=== PATIENT | male | born 1970 | race African-American/Black ===

== ENCOUNTER 2018-11-01 15:20 | Inpatient (IN) | payer MEDICAID ==
[~2018-11-01] VITALS: Ht 172.7 cm; Wt 78.0 kg
[2018-11-01 15:20] VITALS: BP 156/79
[~2018-11-01 15:20] MED LIST: ABILIFY15 MG ORAL; BENZTROPINE ME0.5 MG PO; DIPHENHYDRAMINE25 M1 ORAL; HYDROCHLOROTHIA25 MG ORAL; VALPROIC ACID250 MG PO
[2018-11-01] MEDS ORDERED: Tetanus/Diptheria/Pertussis Vaccine 0.5ml Syr IM ONE (15:45)
[2018-11-01] MEDS ORDERED: Acetaminophen 500mg (ES) tab ORAL ONE (15:45)
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
[2018-11-01 16:50] LABS: BASOPHILS % (AUTO) 1.4 % (0.0-2.0); HEMATOCRIT 52.4 % (42.0-52.0); HEMOGLOBIN 16.4 G/DL (14.2-18.0); LYMPHOCYTES % (AUTO) 6.6 % (20.0-45.0); MEAN CORPUSCULAR VOLUME 88 FL (80-99); MONOCYTES % (AUTO) 7.4 % (1.0-10.0); NEUTROPHILS % (AUTO) 84.5 % (45.0-75.0); PLATELET COUNT 166 K/UL (150-450); RED BLOOD COUNT 5.97 M/UL (4.70-6.10); RED CELL DISTRIBUTION WIDTH 14.3 % (11.6-14.8); WHITE BLOOD COUNT 16.1 K/UL (4.8-10.8)
--- NOTE | 2018-11-01 17:00 | Diagnostic Imaging Report ---
Indication: Reason For Exam: PAIN Technique: Continuous helical CT scanning of the head was performed without intravenous contrast material. Axial and coronal 5 mm sections were generated. Radiation dose was minimized using automated exposure control Dose: Total Dose Length Product - DLP [address] Dose Index - CTDIvol(s) 70.38 mGy. Comparison: 03/29/2012 Findings: The ventricular system is normal in size and configuration. There is no shift of midline structures. No abnormal extra-axial fluid collections are noted. There is no evidence of intracerebral bleeding. No other abnormal high or low density areas are noted within the brain. Normal vincent-white differentiation. Visualized sinuses are unremarkable. The mastoids are clear. There is chronic appearing medial displacement of the bilateral medial orbital hemphill. No significant interim change Impression: Normal CT scan of the head without contrast material. The CT scanner at [facility] is accredited by the [employer] and the scans are performed using protocols designed to limit radiation exposure to as low as reasonably achievable to attain images of sufficient resolution adequate for diagnostic evaluation.
[2018-11-01 18:15] LABS: APPEARANCE,URINE SLIGHTLY CLOUDY; BILIRUBIN, URINE NEGATIVE (NEGATIVE); COLOR,URINE PALE YELLOW; GLUCOSE, URINE (UA) 4+ (NEGATIVE); KETONES,URINE 4+ (NEGATIVE); LEUKOCYTE ESTERASE ,URINE NEGATIVE (NEGATIVE); NITRITE,URINE NEGATIVE (NEGATIVE); PH,URINE 5 (4.5-8.0); PROTEIN,URINE 2+ (NEGATIVE); UROBILINOGEN,URINE NORMAL MG/DL (0.0-1.0)
[2018-11-01 18:18] LABS: ALANINE AMINOTRANSFERASE 29 U/L (12-78); ALBUMIN 3.7 G/DL (3.4-5.0); ALBUMIN/GLOBULIN RATIO 0.7 (1.0-2.7); ALKALINE PHOSPHATASE 140 U/L (46-116); ANION GAP 30 mmol/L (5-15); ASPARTATE AMINO TRANSFERASE 19 U/L (15-37); BILIRUBIN,TOTAL 0.5 MG/DL (0.2-1.0); BLOOD UREA NITROGEN 22 mg/dL (7-18); CHLORIDE 89 MMOL/L (98-107); CKMB 17.6 NG/ML (0.0-3.6); CREATINE KINASE 374 U/L (26-308); POTASSIUM 4.5 MMOL/L (3.5-5.1); SODIUM 126 MMOL/L (136-145)
[2018-11-01 18:25] LABS: CARBON DIOXIDE 7 MMOL/L (21-32)
[2018-11-01] MEDS ORDERED: Insulin Human Regular 100units/ml 3ml IV ONE (18:30)
[2018-11-01 19:14] VITALS: BP 168/111
[2018-11-01 19:15] VITALS: BP 202/134
[2018-11-01] MEDS ORDERED: cloNIDine 0.2mg Tab ORAL ONE (19:30)
[2018-11-01 20:30] VITALS: BP 146/88
[2018-11-01 21:04] LABS: ALANINE AMINOTRANSFERASE 24 U/L (12-78); ALBUMIN 1.7 G/DL (3.4-5.0); ALBUMIN/GLOBULIN RATIO 0.6 (1.0-2.7); ALKALINE PHOSPHATASE 64 U/L (46-116); ASPARTATE AMINO TRANSFERASE 21 U/L (15-37); BILIRUBIN,TOTAL 0.2 MG/DL (0.2-1.0); BLOOD UREA NITROGEN 13 mg/dL (7-18); CHLORIDE 114 MMOL/L (98-107); CREATININE 0.9 MG/DL (0.55-1.30); SODIUM 144 MMOL/L (136-145)
[2018-11-01 21:11] LABS: POTASSIUM 2.1 MMOL/L (3.5-5.1)
[2018-11-01 21:12] LABS: CALCIUM < 5.0 MG/DL (8.5-10.1); CARBON DIOXIDE < 5 MMOL/L (21-32)
[2018-11-01 22:00] VITALS: BP 98/74
[2018-11-01] MEDS ORDERED: Insulin Human Regular 100units/ml 3ml IV PRN ×8 (22:00→23:15)
[2018-11-01] MEDS ORDERED: Insulin Rate Change 1 Each MISC PRN ×3 (22:00→23:15)
[2018-11-01 22:21] LABS: ANION GAP 25 mmol/L (5-15)
[2018-11-01] MEDS ORDERED: Calcium Gluconate 10% 1 GM in NS 110 ML IVPB SCH (22:45)
[2018-11-01 23:00] VITALS: BP 126/83
[2018-11-02] VITALS (24 sets, daily range): BP systolic 96–128; BP diastolic 46–96
[2018-11-02] MEDS ORDERED: Calcium Gluconate 1gm/10ml vial ONE (00:24)
[2018-11-02] MEDS ORDERED: NS w/KCl 20mEq 1,000 ML IV ONE (00:26)
[2018-11-02] MEDS: NS w/KCl 20mEq 1,000 ML IV SCH ×3 (00:31→18:50)
[2018-11-02] MEDS ORDERED: Insulin Human Regular 100units/ml 3ml IV PRN ×4 (01:30→04:15)
[2018-11-02] MEDS ORDERED: Insulin Rate Change 1 Each MISC PRN (01:30)
--- NOTE | 2018-11-02 02:00 | History and Physical Report ---
DATE OF ADMISSION: 11/01/2018 HISTORY OF PRESENT ILLNESS: The patient is a 48-year-old male, came to the emergency room for having DKA and sugar is high. The patient also was found to have hypokalemia. The patient has had diabetes, taking insulin, but also having some nausea, vomiting, hypertension, depression MEDICATIONS: He is taking Abilify, benztropine, Benadryl, hydrochlorothiazide, valproic acid. ALLERGIES: NKA. FAMILY HISTORY: Noncontributory. SOCIAL HISTORY: [facility]. Denies any smoking and drinking. REVIEW OF SYSTEMS: The patient unable to give any history. He is tired and sleeping. PHYSICAL EXAMINATION: VITAL SIGNS: Blood pressure is 168/111, pulse 113, respiration 16, temperature 97.8. HEENT: AT/NC. EOMI. PERRLA NECK: Supple. CHEST: Bilaterally clear. CARDIOVASCULAR: Regular rhythm. Tachycardia. ABDOMEN: Soft. Positive bowel sounds. No ascites. EXTREMITIES: No CCE. NEUROLOGIC: Generalized weakness. LABORATORY AND DIAGNOSTIC DATA: White counts are 16,000, hemoglobin 16, hematocrit 52, platelets are 166. Chemistry panel, sodium 144, potassium 2.1, BUN 13, creatinine 0.9, glucose initially was 763 and currently 415, on insulin drip. Calcium 5 . Lipase 2000. ASSESSMENT: 1. Diabetic ketoacidosis. 2. Acute pancreatitis. 3. Hypokalemia. 4. Hypocalcemia. 5. Hypertension. 6. Depression. PLAN: 1. We will admit on ICU, start NPO, clear liquid diet, and ice packs. 2. Continue in diabetic ketoacidosis protocols and Accu-Chek. 3. Intravenous fluid, 150 mL/hr. 4. Potassium replacement. 5. Consider endocrine consult. Dallin Daly M.D. DR: Daniella JOB#: [id number] CC:
[2018-11-02] MEDS ORDERED: Potassium Phosphate 30 MM in NS 275 ML IV SCH ×2 (03:30→04:15)
[2018-11-02] MEDS ORDERED: NS IV SCH (03:30)
[2018-11-02] MEDS ORDERED: POTASSIUM PHOSPHATE IV SCH (03:30)
--- NOTE | 2018-11-02 06:46 | General Progress Note ---
Assessment/Plan Problem List: (1) Pancreatitis ICD Codes: K85.90 - Acute pancreatitis without necrosis or infection, unspecified SNOMED: 56115137 (2) JESUSITA (acute kidney injury) ICD Codes: N17.9 - Acute kidney failure, unspecified SNOMED: 80547053 (3) Hypocalcemia ICD Codes: E83.51 - Hypocalcemia SNOMED: 4857083 (4) Hypokalemia ICD Codes: E87.6 - Hypokalemia SNOMED: 91831194 (5) DKA (diabetic ketoacidoses) ICD Codes: E13.10 - Other specified diabetes mellitus with ketoacidosis without coma SNOMED: 14368521, 828428574 Assessment/Plan continue insulin gtt monitor electrolytes and correct accordingly continue IVF keep NPO - consider GI and critical care consultation discussed with RN Subjective ROS Limited/Unobtainable: Yes Allergies: Coded Allergies: No Known Allergies (Unverified , 11/01/18) Subjective 48-year-old male patient presents the ER brought in by ambulance complaining of anxiety and back pain. Reports history of anxiety, states he does not know the medications that he takes. Also complaining of back pain. Denies bowel bladder incontinence. Denies acute injury or trauma. Denies pain radiating down legs. Denies drinking or drug use. Denies hx of diabetes. Patient appears agitated and anxious during interview, patient is requesting food and drink. Denies thoughts of hurting himself or others. Patient is a poor historian. Denies vomiting. found to be in DKA with severe electrolytes abnormalities lipase very high confirming pancreatitis started on IVF and insulin gtt after admitted to icu electrolytes replaced am labs pending Objective Last 24 Hour Vital Signs Date Time Temp Pulse Resp B/P (MAP) Pulse Ox O2 Delivery O2 Flow Rate FiO2 11/02/18 06:00 100 20 106/96 (99) 97 11/02/18 05:00 100 16 107/68 (81) 98 11/02/18 04:00 Room Air 11/02/18 04:00 98.0 99 16 97/65 (76) 98 11/02/18 04:00 100 11/02/18 03:00 105 16 128/93 (105) 98 11/02/18 02:00 102 16 118/63 (81) 98 11/02/18 01:00 102 16 96/75 (82) 98 11/02/18 00:00 Room Air 11/02/18 00:00 109 18 107/74 (85) 98 11/02/18 00:00 109 11/01/18 23:00 114 20 126/83 (97) 100 11/01/18 22:00 Room Air 11/01/18 22:00 98.0 106 28 98/74 (82) 99 11/01/18 21:00 97.8 99 18 146/88 95 Room Air 11/01/18 20:30 97.8 99 18 146/88 95 Room Air 11/01/18 19:39 202/134 11/01/18 19:15 97.8 120 16 202/134 99 Room Air 11/01/18 19:14 97.8 113 16 168/111 99 Room Air 11/01/18 16:16 97.8 11/01/18 15:20 97.9 78 16 156/79 98 Room Air 11/01/18 15:10 97.9 118 16 156/79 98 Room Air Intake and Output 11/01/18 11/02/18 18:59 06:59 Intake Total 2336.6 ml Output Total 500 ml Balance 1836.6 ml Intake Oral 0 ml IV Total 2336.6 ml Output Urine Total 500 ml Laboratory Tests 11/01/18 16:30: White Blood Count 16.1H, Red Blood Count 5.97, Hemoglobin 16.4, Hematocrit 52.4H , Mean Corpuscular Volume 88, Mean Corpuscular Hemoglobin 27.5, Mean Corpuscular Hemoglobin Concent 31.3L, Red Cell Distribution Width 14.3, Platelet Count 166, Mean Platelet Volume 10.5H, Neutrophils (%) (Auto) 84.5H, Lymphocytes (%) (Auto) 6.6L, Monocytes (%) (Auto) 7.4, Eosinophils (%) (Auto) 0.0, Basophils (%) (Auto) 1.4 11/01/18 17:35: Sodium Level 126L, Potassium Level 4.5, Chloride Level 89L, Carbon Dioxide Level 7*L, Anion Gap 30H, Blood Urea Nitrogen 22H, Creatinine 2.0H, Estimat Glomerular Filtration Rate 43.8, Glucose Level 763*H, Calcium Level 9.0, Magnesium Level 2.4, Total Bilirubin 0.5, Aspartate Amino Transf (AST/SGOT) 19, Alanine Aminotransferase (ALT/SGPT) 29, Alkaline Phosphatase 140H, Total Creatine Kinase 374H, Creatine Kinase MB 17.6H, Creatine Kinase MB Relative Index 4.7, Troponin I 0.000, Pro-B-Type Natriuretic Peptide 107, Total Protein 9.2H, Albumin 3.7, Globulin 5.5, Albumin/Globulin Ratio 0.7L, Lipase > 2000H, Acetone Level Positive-large 11/01/18 18:00: Urine Color Pale yellow, Urine Appearance Slightly cloudy, Urine pH 5, Urine Specific [place] 1.020, Urine Protein 2+H, Urine Glucose (UA) 4+H, Urine Ketones 4+H, Urine Blood 4+H, Urine Nitrite Negative, Urine Bilirubin Negative, Urine Urobilinogen Normal, Urine Leukocyte Esterase Negative, Urine RBC 5-10H, Urine WBC 0-2, Urine Squamous Epithelial Cells Occasional, Urine Bacteria Few, Urine Opiates Screen Negative, Urine Barbiturates Screen Negative, Phencyclidine (PCP) Screen Negative, Urine Amphetamines Screen Negative, Urine Benzodiazepines Screen Negative, Urine Cocaine Screen Negative, Urine Marijuana (THC) Screen Negative 11/01/18 20:00: Sodium Level 144#, Potassium Level 2.1#*L, Chloride Level 114H, Carbon Dioxide Level < 5*L, Anion Gap 25H, Blood Urea Nitrogen 13, Creatinine 0.9#, Estimat Glomerular Filtration Rate > 60, Glucose Level 415#H, Calcium Level < 5.0#*L, Total Bilirubin 0.2, Aspartate Amino Transf (AST/SGOT) 21, Alanine Aminotransferase (ALT/SGPT) 24, Alkaline Phosphatase 64, Total Protein 4.5#L, Albumin 1.7L, Globulin 2.8, Albumin/Globulin Ratio 0.6L 11/02/18 06:15: Sodium Level [Pending], Potassium Level [Pending], Chloride Level [Pending], Carbon Dioxide Level [Pending], Blood Urea Nitrogen [Pending], Creatinine [ Pending], Estimat Glomerular Filtration Rate [Pending], Glucose Level [Pending] , Hemoglobin A1c [Pending], Lactic Acid Level [Pending], Calcium Level [Pending] , Phosphorus Level [Pending], Magnesium Level [Pending], Lactate Dehydrogenase [ Pending] Height (Feet): 5 Height (Inches): 8.00 Weight (Pounds): 163 General Appearance: lethargic EENT: pale conjunctivae Neck: normal alignment Cardiovascular: tachycardia Respiratory/Chest: decreased breath sounds Abdomen: normal bowel sounds Pelvis: normal external exam Edema: no edema noted Arm (L), no edema noted Arm (R), no edema noted Leg (L), no edema noted Leg (R), no edema noted Pedal (L), no edema noted Pedal (R), no edema noted Generalized Objective Current Medications Medications (Trade) Dose Ordered Sig/Cristy Route PRN Reason Start Time Stop Time Status Last Admin Dose Admin Dextrose (Dextrose 50%) 25 ml Q30M PRN IV HYPOGLYCEMIA 11/02/18 04:15 12/02/18 04:14 Dextrose (Dextrose 50%) 50 ml Q30M PRN IV HYPOGLYCEMIA 11/02/18 04:15 12/02/18 04:14 Insulin Human Regular (NovoLIN R) 5 units PRN PRN IV BS 200-299 11/02/18 04:15 12/02/18 04:14 Insulin Human Regular (NovoLIN R) 10 units PRN PRN IV BS=>300 11/02/18 04:15 12/02/18 04:14 Insulin Human Regular 100 units/ Sodium Chloride 101 ml @ 0 mls/hr Q24H IV 11/02/18 04:15 12/02/18 04:14 11/02/18 05:16 Miscellaneous Medication (Insulin Rate Change) 1 ea PRN PRN MISC Sliding Scale 11/02/18 04:15 12/02/18 04:14 Ondansetron HCl (Zofran) 4 mg Q6H PRN IVP Nausea & Vomiting 11/01/18 22:15 12/01/18 22:14 Potassium Phosphate 30 mm/ Sodium Chloride 285 ml @ 47.5 mls/hr ONCE IV 11/02/18 04:15 12/02/18 04:14 11/02/18 05:13 Sodium Chloride 1,000 ml @ 100 mls/hr Q10H IV 11/01/18 22:45 12/01/18 22:44 11/02/18 00:31 Item Value Date Time Bedside Blood Glucose 181 mg/dl H 11/02/18 0600 Bedside Blood Glucose 123 mg/dl H 11/02/18 0200 Bedside Blood Glucose 452 mg/dl H 11/01/18 2200 Glucose Level 763 MG/DL *H 11/01/18 1735 Derrick Chavis MD Nov 02, 2018 06:46
[2018-11-02 07:11] LABS: ANION GAP 15 mmol/L (5-15); BLOOD UREA NITROGEN 17 mg/dL (7-18); CALCIUM 8.5 MG/DL (8.5-10.1); CARBON DIOXIDE 14 MMOL/L (21-32); CHLORIDE 111 MMOL/L (98-107); CREATININE 1.3 MG/DL (0.55-1.30); POTASSIUM 4.9 MMOL/L (3.5-5.1); SODIUM 140 MMOL/L (136-145)
--- NOTE | 2018-11-02 13:34 | Diagnostic Imaging Report ---
Indication: Chest pain Comparison: None A single view chest radiograph was obtained. Findings: Cardiomediastinal appearance is within normal limits for age. The lungs are clear. Pulmonary vascularity is appropriate. The diaphragmatic contour is smooth and costophrenic angles are sharp. No pleural effusions are identified. The bones are unremarkable. Impression: No acute findings
--- NOTE | 2018-11-02 14:39 | Cardiology Report ---
APPROVED REPORT EKG Measurement Heart [id number] MT [id number] Sinus tachycardia Voltage criteria for left ventricular hypertrophy Nonspecific T wave abnormality Abnormal ECG
[2018-11-02] MEDS ORDERED: Tubing IV Secondary IV ONE (15:48)
[2018-11-02] MEDS ORDERED: Tums 500mg ORAL PRN (17:00)
--- NOTE | 2018-11-02 21:15 | Progress Note ---
DATE: 11/02/2018 SUBJECTIVE: This is an elderly male, who came . DKA is improving. Asking for food. He is on low-dose insulin drip. OBJECTIVE: VITAL SIGNS: Blood pressure 109/68, pulse 92, respirations 15, and saturations 97. CHEST: Bilaterally clear. CARDIOVASCULAR: Regular rhythm. No gallop. No murmur. ABDOMEN: Soft. EXTREMITIES: CCE. ASSESSMENT: 1. Diabetic ketoacidosis. 2. Hypokalemia has resolved. 3. Generalized weakness. PLAN: 1. We will start liquid diet. 2. Continue sliding scale. 3. Continue IV fluid. 4. Discussed with charge nurse. Dallin Daly M.D. DR: SARA JOB#: [id number] CC:
[2018-11-03] VITALS (24 sets, daily range): BP systolic 92–142; BP diastolic 48–78
[2018-11-03] MEDS: Insulin Rate Change 1 Each MISC PRN ×4 (02:17→05:06)
[2018-11-03] MEDS: NS w/KCl 20mEq 1,000 ML IV SCH ×2 (04:38→14:45)
[2018-11-03] MEDS ORDERED: Insulin Rate Change 1 Each MISC PRN (07:00)
[2018-11-03] MEDS ORDERED: Insulin Human Regular 100units/ml 3ml IV PRN ×2 (07:00)
[2018-11-03 07:45] LABS: BASOPHILS % (AUTO) 1.4 % (0.0-2.0); EOSINOPHILS % (AUTO) 0.4 % (0.0-3.0); HEMATOCRIT 35.6 % (42.0-52.0); HEMOGLOBIN 12.3 G/DL (14.2-18.0); LYMPHOCYTES % (AUTO) 18.6 % (20.0-45.0); MEAN CORPUSCULAR VOLUME 81 FL (80-99); MONOCYTES % (AUTO) 10.5 % (1.0-10.0); NEUTROPHILS % (AUTO) 69.1 % (45.0-75.0); PLATELET COUNT 151 K/UL (150-450); RED BLOOD COUNT 4.39 M/UL (4.70-6.10); RED CELL DISTRIBUTION WIDTH 13.5 % (11.6-14.8); WHITE BLOOD COUNT 7.4 K/UL (4.8-10.8)
[2018-11-03 07:59] LABS: ALANINE AMINOTRANSFERASE 23 U/L (12-78); ALBUMIN 2.5 G/DL (3.4-5.0); ALBUMIN/GLOBULIN RATIO 0.7 (1.0-2.7); ALKALINE PHOSPHATASE 80 U/L (46-116); ANION GAP 12 mmol/L (5-15); ASPARTATE AMINO TRANSFERASE 19 U/L (15-37); BILIRUBIN,TOTAL 0.5 MG/DL (0.2-1.0); BLOOD UREA NITROGEN 10 mg/dL (7-18); CALCIUM 7.8 MG/DL (8.5-10.1); CARBON DIOXIDE 18 MMOL/L (21-32); CHLORIDE 107 MMOL/L (98-107); CREATININE 0.9 MG/DL (0.55-1.30); POTASSIUM 3.4 MMOL/L (3.5-5.1); SODIUM 137 MMOL/L (136-145)
[2018-11-03] MEDS ORDERED: Isovue-300 100ml vial INJ PRN ×2 (10:00→14:30)
--- NOTE | 2018-11-03 15:45 | Consultation ---
DATE OF CONSULTATION: 11/03/2018 GASTROENTEROLOGY CONSULTATION REPORT CHIEF COMPLAINT: I was asked to see this patient by Dr. Robert Daly for evaluation of pancreatitis. HISTORY OF PRESENT ILLNESS: The patient is a 48-year-old, man, who comes into the emergency room with abdominal discomfort, nausea, vomiting, and elevated sugar. The patient says that he has had a longstanding history of drinking. He drinks 9 beers a day in three sessions of 3 beers each. He has been doing this for many years but has never had any problems of alcoholic hepatitis or pancreatitis. The patient has had less abdominal pain. He feels little bit nauseous but he wants to eat. On admission his lipase was over 2000. Imaging studies of the pancreas have not been done yet. PAST MEDICAL HISTORY: History of psychiatric disorder on multiple medications. FAMILY HISTORY: Noncontributory and negative for gastrointestinal disorders. SOCIAL HISTORY: The patient lives in a [facility] and [facility]. He drinks 9 beers a day as described above. MEDICATIONS: See chart list for details. ALLERGIES: None. REVIEW OF SYSTEMS: Otherwise negative. PHYSICAL EXAMINATION: GENERAL: The patient is well-developed and well-nourished man, seen in ICU. HEENT: Normocephalic and atraumatic. Sclerae anicteric. Oropharynx clear. NECK: Supple. CHEST: Clear to auscultation. CARDIOVASCULAR: Revealed a regular rate. ABDOMEN: Soft and flat with good bowel sounds. There is some mild diffuse tenderness to palpation without guarding or rebound. EXTREMITIES: Revealed no edema. LABORATORY DATA: Noted. The patient's hemoglobin A1c was 12 to 13 range. His lipase was over 2000. His initial hematocrit was hemoconcentrated but drop significantly to level of 12.3 and 35.6 after IV hydration. He also has had significant degree of acidosis on admission which is improving. His sugar on admission was 763. ASSESSMENT: The patient presents with diabetes and diabetic ketoacidosis. His hemoglobin A1c of 12 clearly shows that he is a long-term diabetic. In addition, he has heavy alcohol history and his lipase is over 2000; therefore he likely had a degree of alcoholic pancreatitis. CT scan of the abdomen and pelvis can be done to evaluate the patient's pancreas especially since his creatinine now is normal. In the meantime, he should be kept NPO until his symptoms are better and diet can be advanced as tolerated. The patient was strongly advised to stop drinking alcohol. RECOMMENDATIONS: Per above discussion and per orders written in the chart. Thank you for asking me to participate in care of this patient. Jeremy Sewell M.D. DR: Dhruv JOB#: [id number] CC:
--- NOTE | 2018-11-03 16:48 | Diagnostic Imaging Report ---
Clinical Indication: Abdominal pain Technique: Patient given oral contrast. IV administration nonionic contrast. Venous phase spiral acquisition obtained through the abdomen and pelvis. Multiplanar reconstructions were generated. Total dose length product 654.61 mGycm. CTDIvol(s) 12.47 mGy. Dose reduction achieved using automated exposure control Comparison: none Findings: The appendix is normal. No evidence of diverticulosis or diverticulitis. No small bowel distention or small bowel wall thickening. No free or loculated intraperitoneal gas or fluid is evident. The distal esophagus, stomach, duodenum are unremarkable. The liver, gallbladder, bile ducts, pancreas are all unremarkable. The spleen is absent, presumably postsurgically, as multiple surgical clips are seen in the splenic bed. The adrenals and left kidney are unremarkable. The right kidney demonstrates an upper pole subcentimeter low-attenuation lesion which is too small to characterize. The bladder demonstrates suggestion of mild wall thickening, likely artifact of under distention. No pelvic mass or adenopathy. Minimal dependent atelectatic changes are seen in the posterior right lung base. The bones demonstrate an unusual bony bridge between the left eighth and ninth ribs. Subcentimeter low-attenuation right upper pole renal lesion, too small to characterize, most likely benign simple cortical cyst. There is an unusual bony protrusion off the left anterior iliac spine. Appearance is suggestive of an osteochondroma, except that the medullary space does not communicate with the iliac bone medullary space Impression: Equivocal slight bladder wall thickening, most likely an artifact of under distention but could indicate cystitis. Correlate with laboratory findings No acute abnormality otherwise Surgically absent spleen Unusual bony protrusion off of the left anterior iliac spine. Suspect that this represents an osteochondroma, but could also represent heterotopic ossification from prior trauma Incidental findings as noted, including left intercostal bony bridge, minimal right basilar atelectatic changes Subcentimeter low-attenuation right upper pole renal lesion, too small to characterize, most likely benign simple cyst. No further follow-up necessary The CT scanner at [facility] is accredited by the [employer] and the scans are performed using protocols designed to limit radiation exposure to as low as reasonably achievable to attain images of sufficient resolution adequate for diagnostic evaluation.
--- NOTE | 2018-11-03 18:15 | Progress Note ---
DATE: 11/03/2018 SUBJECTIVE: This is elderly female, who is currently in the intensive care unit, still complaining of abdominal pain, has episode of nausea and vomiting this morning, not feeling well. OBJECTIVE: VITAL SIGNS: Blood pressure is stable. CHEST: Bilaterally clear. CARDIOVASCULAR: Regular rhythm ABDOMEN: Soft. Positive bowel sounds. Mild tenderness. EXTREMITIES: ASSESSMENT: 1. Diabetic ketoacidosis. 2. Recurrent nausea and vomiting. 3. Abdominal pain. 4. Generalized weakness. PLAN: 1. We will consider GI consult. 2. Continue IV fluid. 3. Continue sliding scale and Accu-Chek. 4. Continue antibiotics. Dallin Daly M.D. DR: Daniella JOB#: [id number] CC:
--- NOTE | 2018-11-03 19:27 | General Progress Note ---
Assessment/Plan Problem List: (1) Pancreatitis ICD Codes: K85.90 - Acute pancreatitis without necrosis or infection, unspecified SNOMED: 41679556 (2) JESUSITA (acute kidney injury) ICD Codes: N17.9 - Acute kidney failure, unspecified SNOMED: 95400152 (3) Hypocalcemia ICD Codes: E83.51 - Hypocalcemia SNOMED: 1667658 (4) Hypokalemia ICD Codes: E87.6 - Hypokalemia SNOMED: 27293633 (5) DKA (diabetic ketoacidoses) ICD Codes: E13.10 - Other specified diabetes mellitus with ketoacidosis without coma SNOMED: 91681605, 482009191 Assessment/Plan DC insulin gtt start Levemir 36 units qhs start Novolog 8 units ac tid start NISS ac / hs continue IVF Subjective Allergies: Coded Allergies: No Known Allergies (Unverified , 11/01/18) All Systems: reviewed and negative except above Subjective feeling much better Objective Last 24 Hour Vital Signs Date Time Temp Pulse Resp B/P (MAP) Pulse Ox O2 Delivery O2 Flow Rate FiO2 11/03/18 19:00 92 18 109/57 (74) 96 11/03/18 18:00 98 18 111/55 (73) 96 11/03/18 17:00 99 18 105/63 (77) 96 11/03/18 16:00 98 11/03/18 16:00 99.0 100 18 112/78 (89) 96 11/03/18 16:00 Room Air 11/03/18 15:00 101 18 99/60 (73) 96 11/03/18 14:00 98 18 109/63 (78) 96 11/03/18 13:00 98 18 107/65 (79) 96 11/03/18 12:00 95 11/03/18 12:00 Room Air 11/03/18 12:00 98.0 105 18 92/78 (83) 96 11/03/18 11:00 98 18 110/63 (79) 96 11/03/18 10:00 98 18 105/63 (77) 96 11/03/18 09:00 99 18 113/60 (77) 96 11/03/18 08:00 99 11/03/18 08:00 98.6 100 18 110/78 (89) 96 11/03/18 08:00 Room Air 11/03/18 07:00 99 18 113/63 (80) 96 11/03/18 06:00 100 18 112/62 (79) 96 11/03/18 05:00 101 18 111/62 (78) 96 11/03/18 04:00 Room Air 11/03/18 04:00 98.6 100 18 116/78 (91) 96 11/03/18 03:00 101 16 111/72 (85) 96 11/03/18 02:00 99 16 103/66 (78) 96 11/03/18 02:00 103 11/03/18 01:00 106 16 109/67 (81) 96 11/03/18 00:00 98.4 103 16 109/67 (81) 96 11/03/18 00:00 Room Air 11/03/18 00:00 95 11/02/18 23:00 103 17 105/64 (78) 95 11/02/18 22:00 103 17 105/71 (82) 95 11/02/18 21:00 98 17 102/65 (77) 95 11/02/18 20:00 98.0 98 17 111/73 (86) 97 11/02/18 20:00 Room Air Intake and Output 11/02/18 11/03/18 19:00 07:00 Intake Total 1421.0 ml 1905.5 ml Output Total 1100 ml 1500 ml Balance 321.0 ml 405.5 ml Intake Oral 500 ml 580 ml IV Total 921.0 ml 1325.5 ml Output Urine Total 1100 ml 1500 ml # Voids 1 Laboratory Tests 11/03/18 05:00: White Blood Count 7.4, Red Blood Count 4.39L, Hemoglobin 12.3L, Hematocrit 35.6L , Mean Corpuscular Volume 81, Mean Corpuscular Hemoglobin 28.0, Mean Corpuscular Hemoglobin Concent 34.5, Red Cell Distribution Width 13.5, Platelet Count 151, Mean Platelet Volume 8.6, Neutrophils (%) (Auto) 69.1, Lymphocytes (% ) (Auto) 18.6L, Monocytes (%) (Auto) 10.5H, Eosinophils (%) (Auto) 0.4, Basophils (%) (Auto) 1.4, Sodium Level 137, Potassium Level 3.4L, Chloride Level 107, Carbon Dioxide Level 18L, Anion Gap 12, Blood Urea Nitrogen 10, Creatinine 0.9, Estimat Glomerular Filtration Rate > 60, Glucose Level 146H, Hemoglobin A1c 13.0H, Calcium Level 7.8L, Total Bilirubin 0.5, Aspartate Amino Transf (AST/SGOT) 19, Alanine Aminotransferase (ALT/SGPT) 23, Alkaline Phosphatase 80, Total Protein 6.2#L, Albumin 2.5L, Globulin 3.7, Albumin/ Globulin Ratio 0.7L Height (Feet): 5 Height (Inches): 8.00 Weight (Pounds): 160 General Appearance: no apparent distress Neck: normal alignment Cardiovascular: normal rate Respiratory/Chest: decreased breath sounds Abdomen: normal bowel sounds Edema: no edema noted Arm (L), no edema noted Arm (R), no edema noted Leg (L), no edema noted Leg (R), no edema noted Pedal (L), no edema noted Pedal (R), no edema noted Generalized Objective Current Medications Medications (Trade) Dose Ordered Sig/Cristy Route PRN Reason Start Time Stop Time Status Last Admin Dose Admin Barium Sulfate (Readi-Cat 2) 450 ml NOW PRN ORAL Radiology Procedure 11/03/18 10:00 11/05/18 09:59 Barium Sulfate (Readi-Cat 2) 450 ml NOW PRN ORAL Radiology Procedure 11/03/18 14:30 11/05/18 14:28 Calcium Carbonate (Tums) 500 mg Q3H PRN ORAL dyspepsia causing N/V 11/02/18 17:00 12/02/18 16:59 Dextrose (Dextrose 50%) 25 ml Q30M PRN IV HYPOGLYCEMIA 11/03/18 07:00 12/03/18 06:59 Dextrose (Dextrose 50%) 50 ml Q30M PRN IV HYPOGLYCEMIA 11/03/18 07:00 12/03/18 06:59 Insulin Human Regular (NovoLIN R) 5 units PRN PRN IV BS 200-299 11/03/18 07:00 12/03/18 06:59 Insulin Human Regular (NovoLIN R) 10 units PRN PRN IV BS=>300 11/03/18 07:00 12/03/18 06:59 Insulin Human Regular 100 units/ Sodium Chloride 101 ml @ 0 mls/hr Q24H IV 11/03/18 07:00 12/03/18 06:59 11/03/18 08:00 Iopamidol (Isovue-300 100ml) 100 ml NOW PRN INJ Radiology Procedure 11/03/18 10:00 11/05/18 09:59 Iopamidol (Isovue-300 100ml) 100 ml NOW PRN INJ Radiology Procedure 11/03/18 14:30 11/05/18 23:59 Miscellaneous Medication (Insulin Rate Change) 1 ea PRN PRN MISC Sliding Scale 11/02/18 04:15 12/02/18 04:14 11/03/18 05:06 Miscellaneous Medication (Insulin Rate Change) 1 ea PRN PRN MISC Hyperglycemia 11/03/18 07:00 12/03/18 06:59 Ondansetron HCl (Zofran) 4 mg Q6H PRN IVP Nausea & Vomiting 11/01/18 22:15 12/01/18 22:14 11/03/18 01:03 Sodium Chloride 1,000 ml @ 100 mls/hr Q10H IV 11/01/18 22:45 12/01/18 22:44 11/03/18 14:45 Item Value Date Time Bedside Blood Glucose 147 mg/dl H 11/03/18 1900 Bedside Blood Glucose 172 mg/dl H 11/03/18 1800 Bedside Blood Glucose 150 mg/dl H 11/03/18 1400 Bedside Blood Glucose 198 mg/dl H 11/03/18 1000 Bedside Blood Glucose 151 mg/dl H 11/03/18 0600 Bedside Blood Glucose 208 mg/dl H 11/03/18 0217 Derrick Chavis MD Nov 03, 2018 19:27
[2018-11-03] MEDS ORDERED: Levemir Flexpen SUBQ SCH (21:00)
[2018-11-03] MEDS: NovoLOG Insulin Flexpen SUBQ SCH (21:00)
[2018-11-04] VITALS (15 sets, daily range): BP systolic 98–141; BP diastolic 48–94
[2018-11-04] MEDS: NS w/KCl 20mEq 1,000 ML IV SCH ×4 (03:00→23:53)
[2018-11-04] MEDS: NovoLOG Insulin Flexpen SUBQ SCH ×6 (06:13→22:38)
[2018-11-04 10:07] LABS: ANION GAP 7 mmol/L (5-15); BLOOD UREA NITROGEN 3 mg/dL (7-18); CALCIUM 7.6 MG/DL (8.5-10.1); CARBON DIOXIDE 25 MMOL/L (21-32); CHLORIDE 107 MMOL/L (98-107); CREATININE 0.7 MG/DL (0.55-1.30); POTASSIUM 3.1 MMOL/L (3.5-5.1); SODIUM 138 MMOL/L (136-145)
[2018-11-04] MEDS ORDERED: Isovue-300 100ml vial INJ PRN (13:55)
[2018-11-04] MEDS ORDERED: Isovue-300 100ml vial INJ SCH (14:00)
[2018-11-04] MEDS ORDERED: Tums 500mg ORAL PRN (14:00)
[2018-11-04] MEDS ORDERED: NovoLOG Insulin Flexpen SUBQ SCH (16:50)
--- NOTE | 2018-11-04 17:45 | General Progress Note ---
Assessment/Plan Problem List: (1) Pancreatitis ICD Codes: K85.90 - Acute pancreatitis without necrosis or infection, unspecified SNOMED: 42901910 (2) JESUSITA (acute kidney injury) ICD Codes: N17.9 - Acute kidney failure, unspecified SNOMED: 39844153 (3) Hypocalcemia ICD Codes: E83.51 - Hypocalcemia SNOMED: 8008872 (4) Hypokalemia ICD Codes: E87.6 - Hypokalemia SNOMED: 88997774 (5) DKA (diabetic ketoacidoses) ICD Codes: E13.10 - Other specified diabetes mellitus with ketoacidosis without coma SNOMED: 68673225, 075041703 Assessment/Plan reduce Levemir to 18 units qhs reduce Novolog to 4 units ac tid continue NISS ac / hs Subjective Allergies: Coded Allergies: No Known Allergies (Unverified , 11/01/18) All Systems: reviewed and negative except above Subjective transferred out of ICU Objective Last 24 Hour Vital Signs Date Time Temp Pulse Resp B/P (MAP) Pulse Ox O2 Delivery O2 Flow Rate FiO2 11/04/18 16:00 Room Air 11/04/18 13:00 89 20 120/56 (77) 95 11/04/18 12:02 Room Air 11/04/18 12:02 92 11/04/18 11:58 98.2 96 19 115/71 (86) 95 11/04/18 11:00 92 18 107/48 (67) 95 11/04/18 10:00 89 20 125/84 (98) 94 11/04/18 09:00 99 20 112/60 (77) 94 11/04/18 08:00 100 11/04/18 08:00 Room Air 11/04/18 08:00 98.6 100 20 100/50 (67) 98 11/04/18 07:00 100 20 115/83 (94) 95 11/04/18 06:00 99 20 138/84 (102) 95 11/04/18 05:00 100 20 141/84 (103) 95 11/04/18 04:00 Room Air 11/04/18 04:00 99.4 95 20 98/49 (65) 95 11/04/18 04:00 105 11/04/18 03:00 112 20 121/72 (88) 95 11/04/18 02:00 95 20 135/59 (84) 98 11/04/18 01:00 100 20 107/57 (74) 98 11/04/18 00:00 101 11/04/18 00:00 99.0 101 20 104/57 (73) 98 11/04/18 00:00 Room Air 11/03/18 23:00 96 20 116/72 (87) 97 11/03/18 22:00 97 18 114/72 (86) 97 11/03/18 21:00 99 18 115/48 (70) 97 11/03/18 20:00 Room Air 11/03/18 20:00 99.2 93 18 142/63 (89) 95 11/03/18 20:00 93 11/03/18 19:00 92 18 109/57 (74) 96 11/03/18 18:00 98 18 111/55 (73) 96 Intake and Output 11/03/18 11/04/18 18:59 06:59 Intake Total 1352 ml 2030 ml Output Total 700 ml 1650 ml Balance 652 ml 380 ml Intake Oral 350 ml 930 ml IV Total 1002 ml 1100 ml Output Urine Total 700 ml 1650 ml Laboratory Tests 11/04/18 08:35: Sodium Level 138, Potassium Level 3.1L, Chloride Level 107, Carbon Dioxide Level 25, Anion Gap 7, Blood Urea Nitrogen 3L, Creatinine 0.7, Estimat Glomerular Filtration Rate > 60, Glucose Level 190H, Calcium Level 7.6L Height (Feet): 5 Height (Inches): 8.00 Weight (Pounds): 161 General Appearance: no apparent distress Neck: normal alignment Cardiovascular: normal rate Respiratory/Chest: lungs clear Abdomen: normal bowel sounds Edema: 1+ Arm (L), 1+ Arm (R), 1+ Leg (L), 1+ Leg (R), 1+ Pedal (L), 1+ Pedal ( R), 1+ Generalized Objective Current Medications Medications (Trade) Dose Ordered Sig/Cristy Route PRN Reason Start Time Stop Time Status Last Admin Dose Admin Barium Sulfate (Readi-Cat 2) 450 ml NOW PRN ORAL Radiology Procedure 11/04/18 14:30 11/05/18 14:29 Calcium Carbonate (Tums) 500 mg Q3H PRN ORAL dyspepsia causing N/V 11/04/18 14:00 12/02/18 16:59 Dextrose (Dextrose 50%) 25 ml Q30M PRN IV Hypoglycemia 11/04/18 14:00 12/03/18 19:29 Dextrose (Dextrose 50%) 50 ml Q30M PRN IV Hypoglycemia 11/04/18 14:00 12/03/18 19:29 Insulin Aspart (NovoLOG) BEFORE MEALS AND HS SUBQ 11/04/18 16:30 12/03/18 20:59 Insulin Aspart (NovoLOG) 8 units NOVOTIAC SUBQ 11/04/18 16:50 12/04/18 06:29 Insulin Detemir (Levemir) 36 units BEDTIME SUBQ 11/04/18 21:00 12/03/18 20:59 Iopamidol (Isovue-300 100ml) 100 ml NOW PRN INJ Radiology Procedure 11/04/18 13:55 11/05/18 23:59 Ondansetron HCl (Zofran) 4 mg Q6H PRN IVP Nausea & Vomiting 11/04/18 13:54 12/01/18 13:53 Sodium Chloride 1,000 ml @ 100 mls/hr Q10H IV 11/04/18 13:53 12/01/18 13:52 11/04/18 13:53 Item Value Date Time Bedside Blood Glucose 98 mg/dl 11/04/18 1200 Bedside Blood Glucose 172 mg/dl H 11/03/18 1800 Bedside Blood Glucose 150 mg/dl H 11/03/18 1400 Derrick Chavis MD Nov 04, 2018 17:45
--- NOTE | 2018-11-04 18:31 | Progress Note ---
DATE: 11/04/2018 SUBJECTIVE: This is a young white male, currently doing better. Still complaining of pain but tolerated diet. OBJECTIVE: VITAL SIGNS: Blood pressure 112/60, pulse 99, temperature no fever. CHEST: Bilaterally clear. CARDIOVASCULAR: Regular rhythm. ABDOMEN: Soft. EXTREMITIES: CCE. NEUROLOGICAL: No focal deficit. LABORATORY AND DIAGNOSTIC DATA: His laboratory white count 7.4, hemoglobin 12, hematocrit 35, platelets are normal. Chemistry panel is pending. The patient also had a CT of abdomen showing the appendix is normal. No evidence of diverticulosis, duodenum unremarkable. Liver, gallbladder, and bile duct are unremarkable. Slight bladder wall thickening likely artifact. ASSESSMENT: 1. DKA. 2. Abdominal pain. 3. Nausea and vomiting. The patient is clinically improving. We will currently continue IV fluid. Continue sliding scale high dose. Accu-Chek q.a.c. and at bedtime. GI and Endocrine is on consult. We will transfer him to medical floor. Dallin Daly M.D. DR: Daniella JOB#: [id number] CC:
[2018-11-04] MEDS ORDERED: Levemir Flexpen SUBQ SCH (21:00)
--- NOTE | 2018-11-04 22:11 | General Progress Note ---
Assessment/Plan Assessment/Plan Assessment - DM - pancreatitis - Alcohol abuse Recommendations - advance diet - follow labs - avoid EtOH Subjective Allergies: Coded Allergies: No Known Allergies (Unverified , 11/01/18) Subjective Feels better less abd pain CT noted Objective Last 24 Hour Vital Signs Date Time Temp Pulse Resp B/P (MAP) Pulse Ox O2 Delivery O2 Flow Rate FiO2 11/04/18 16:00 Room Air 11/04/18 13:00 89 20 120/56 (77) 95 11/04/18 12:02 Room Air 11/04/18 12:02 92 11/04/18 11:58 98.2 96 19 115/71 (86) 95 11/04/18 11:00 92 18 107/48 (67) 95 11/04/18 10:00 89 20 125/84 (98) 94 11/04/18 09:00 99 20 112/60 (77) 94 11/04/18 08:00 100 11/04/18 08:00 Room Air 11/04/18 08:00 98.6 100 20 100/50 (67) 98 11/04/18 07:00 100 20 115/83 (94) 95 11/04/18 06:00 99 20 138/84 (102) 95 11/04/18 05:00 100 20 141/84 (103) 95 11/04/18 04:00 Room Air 11/04/18 04:00 99.4 95 20 98/49 (65) 95 11/04/18 04:00 105 11/04/18 03:00 112 20 121/72 (88) 95 11/04/18 02:00 95 20 135/59 (84) 98 11/04/18 01:00 100 20 107/57 (74) 98 11/04/18 00:00 101 11/04/18 00:00 99.0 101 20 104/57 (73) 98 11/04/18 00:00 Room Air 11/03/18 23:00 96 20 116/72 (87) 97 Intake and Output 11/03/18 11/04/18 19:00 07:00 Intake Total 1550 ml 1830 ml Output Total 700 ml 1650 ml Balance 850 ml 180 ml Intake Oral 550 ml 730 ml IV Total 1000 ml 1100 ml Output Urine Total 700 ml 1650 ml Laboratory Tests 11/04/18 08:35: Sodium Level 138, Potassium Level 3.1L, Chloride Level 107, Carbon Dioxide Level 25, Anion Gap 7, Blood Urea Nitrogen 3L, Creatinine 0.7, Estimat Glomerular Filtration Rate > 60, Glucose Level 190H, Calcium Level 7.6L Height (Feet): 5 Height (Inches): 8.00 Weight (Pounds): 161 Objective WDWN NCAT supple CTA RRR abd soft no edema Jeremy Sewell MD Nov 04, 2018 22:11
[2018-11-04] MEDS: Levemir Flexpen SUBQ SCH (22:37)
[2018-11-05] VITALS: BP 111/76
[2018-11-05 04:00] VITALS: BP 130/81
[2018-11-05] MEDS: NovoLOG Insulin Flexpen SUBQ SCH ×7 (06:35→21:45)
[2018-11-05 08:00] VITALS: BP 100/70
[2018-11-05] MEDS: NS w/KCl 20mEq 1,000 ML IV SCH ×2 (10:52→17:18)
[2018-11-05 12:12] VITALS: BP 125/86
[2018-11-05 16:00] VITALS: BP 119/84
--- NOTE | 2018-11-05 18:26 | General Progress Note ---
Assessment/Plan Problem List: (1) Pancreatitis ICD Codes: K85.90 - Acute pancreatitis without necrosis or infection, unspecified SNOMED: 70616534 (2) JESUSITA (acute kidney injury) ICD Codes: N17.9 - Acute kidney failure, unspecified SNOMED: 22555653 (3) Hypocalcemia ICD Codes: E83.51 - Hypocalcemia SNOMED: 1436468 (4) Hypokalemia ICD Codes: E87.6 - Hypokalemia SNOMED: 89749603 (5) DKA (diabetic ketoacidoses) ICD Codes: E13.10 - Other specified diabetes mellitus with ketoacidosis without coma SNOMED: 90222864, 074913284 Assessment/Plan continue Levemir 18 units qhs increase Novolog to 6 units ac tid continue NISS ac / hs Subjective Allergies: Coded Allergies: No Known Allergies (Unverified , 11/01/18) All Systems: reviewed and negative except above Subjective events noted improved Objective Last 24 Hour Vital Signs Date Time Temp Pulse Resp B/P (MAP) Pulse Ox O2 Delivery O2 Flow Rate FiO2 11/05/18 16:00 99.3 96 20 119/84 (96) 98 11/05/18 12:12 98.2 91 19 125/86 (99) 97 11/05/18 09:00 Room Air 11/05/18 08:00 99.0 105 20 100/70 (80) 95 11/05/18 04:00 99.0 94 17 130/81 (97) 96 11/05/18 00:00 98.9 95 20 111/76 (88) 95 11/04/18 21:20 Room Air 11/04/18 20:00 99.1 95 17 130/94 (106) 98 Intake and Output 11/04/18 11/05/18 18:59 06:59 Intake Total 975 ml 1520 ml Output Total 650 ml 1200 ml Balance 325 ml 320 ml Intake Oral 375 ml 420 ml IV Total 600 ml 1100 ml Output Urine Total 650 ml 1200 ml Laboratory Tests 11/05/18 10:20: Lipase 368 Height (Feet): 5 Height (Inches): 8.00 Weight (Pounds): 172 General Appearance: no apparent distress Neck: normal alignment Cardiovascular: normal peripheral pulses Respiratory/Chest: lungs clear Abdomen: normal bowel sounds Objective Current Medications Medications (Trade) Dose Ordered Sig/Cristy Route PRN Reason Start Time Stop Time Status Last Admin Dose Admin Calcium Carbonate (Tums) 500 mg Q3H PRN ORAL dyspepsia causing N/V 11/04/18 14:00 12/02/18 16:59 Dextrose (Dextrose 50%) 25 ml Q30M PRN IV Hypoglycemia 11/04/18 14:00 12/03/18 19:29 Dextrose (Dextrose 50%) 50 ml Q30M PRN IV Hypoglycemia 11/04/18 14:00 12/03/18 19:29 Insulin Aspart (NovoLOG) BEFORE MEALS AND HS SUBQ 11/04/18 16:30 12/03/18 20:59 11/05/18 17:03 Insulin Aspart (NovoLOG) 4 units NOVOTIAC SUBQ 11/05/18 06:30 12/04/18 06:29 11/05/18 17:03 Insulin Detemir (Levemir) 18 units BEDTIME SUBQ 11/04/18 21:00 12/03/18 20:59 11/04/18 22:37 Iopamidol (Isovue-300 100ml) 100 ml NOW PRN INJ Radiology Procedure 11/04/18 13:55 11/05/18 23:59 Ondansetron HCl (Zofran) 4 mg Q6H PRN IVP Nausea & Vomiting 11/04/18 13:54 12/01/18 13:53 Item Value Date Time Bedside Blood Glucose 287 mg/dl H 11/05/18 1703 Bedside Blood Glucose 215 mg/dl H 11/05/18 1148 Bedside Blood Glucose 146 mg/dl H 11/05/18 0636 Bedside Blood Glucose 236 mg/dl H 11/04/18 2238 Derrick Chavis MD Nov 05, 2018 18:26
--- NOTE | 2018-11-05 19:38 | General Progress Note ---
Assessment/Plan Assessment/Plan Assessment - DM - pancreatitis - Alcohol abuse Recommendations - advance diet - follow labs - avoid EtOH - OK for d/c from GI standpoint Subjective Allergies: Coded Allergies: No Known Allergies (Unverified , 11/01/18) Subjective Feels better less abd pain tolerating PO Objective Last 24 Hour Vital Signs Date Time Temp Pulse Resp B/P (MAP) Pulse Ox O2 Delivery O2 Flow Rate FiO2 11/05/18 16:00 99.3 96 20 119/84 (96) 98 11/05/18 12:12 98.2 91 19 125/86 (99) 97 11/05/18 09:00 Room Air 11/05/18 08:00 99.0 105 20 100/70 (80) 95 11/05/18 04:00 99.0 94 17 130/81 (97) 96 11/05/18 00:00 98.9 95 20 111/76 (88) 95 11/04/18 21:20 Room Air 11/04/18 20:00 99.1 95 17 130/94 (106) 98 Intake and Output 11/04/18 11/05/18 18:59 06:59 Intake Total 975 ml 1520 ml Output Total 650 ml 1200 ml Balance 325 ml 320 ml Intake Oral 375 ml 420 ml IV Total 600 ml 1100 ml Output Urine Total 650 ml 1200 ml Laboratory Tests 11/05/18 10:20: Lipase 368 Height (Feet): 5 Height (Inches): 8.00 Weight (Pounds): 172 Objective WDWN NCAT supple CTA RRR abd soft no edema Jeremy Sewell MD Nov 05, 2018 19:37
[2018-11-05 20:00] VITALS: BP 134/76
[2018-11-05] MEDS: Levemir Flexpen SUBQ SCH (21:48)
[2018-11-06] VITALS (8 sets, daily range): BP systolic 120–143; BP diastolic 68–104
[2018-11-06] MEDS: NovoLOG Insulin Flexpen SUBQ SCH ×7 (06:30→21:00)
--- NOTE | 2018-11-06 14:45 | Progress Note ---
DATE: 11/06/2018 SUBJECTIVE: This is an elderly male, who is still complaining of mild pain, but is improving. OBJECTIVE: VITAL SIGNS: Blood pressure 124/73, pulse 88, no fever. CHEST: Bilaterally clear. CARDIOVASCULAR: Regular rhythm. ABDOMEN: Soft. EXTREMITIES: CCE. NEUROLOGIC: Generalized weakness. ASSESSMENT AND PLAN: 1. DKA. 2. Diabetes. 3. Hypertension. We will currently continue current treatment. Continue sliding scale Accu-Chek. We will discuss with charge nurse. Left a message to the mother to teach him how to take insulin Accu-Chek at home. The patient can go home. Prescriptions written in the chart. Dallin Daly M.D. DR: LORAINE JOB#: [id number] CC:
--- NOTE | 2018-11-06 20:30 | General Progress Note ---
Assessment/Plan Assessment/Plan Assessment - DM - pancreatitis - Alcohol abuse Recommendations - advance diet - follow labs - avoid EtOH - OK for d/c from GI standpoint Subjective Allergies: Coded Allergies: No Known Allergies (Unverified , 11/01/18) Subjective Feels better less abd pain tolerating PO Objective Last 24 Hour Vital Signs Date Time Temp Pulse Resp B/P (MAP) Pulse Ox O2 Delivery O2 Flow Rate FiO2 11/06/18 16:00 98.4 106 20 134/72 (92) 99 11/06/18 12:07 97.5 90 19 120/68 (85) 97 11/06/18 09:00 Room Air 11/06/18 08:00 97.0 118 19 124/92 (103) 99 11/06/18 04:00 98.3 88 18 124/73 (90) 99 11/06/18 00:00 97.3 82 18 121/72 (88) 99 11/05/18 21:00 Room Air Intake and Output 11/05/18 11/06/18 18:59 06:59 Intake Total 640 ml 420 ml Output Total 800 ml 400 ml Balance -160 ml 20 ml Intake Oral 240 ml 420 ml IV Total 400 ml Output Urine Total 800 ml 400 ml # Voids 3 Height (Feet): 5 Height (Inches): 8.00 Weight (Pounds): 170 Objective WDWN NCAT supple CTA RRR abd soft no edema Jeremy Sewell MD Nov 06, 2018 20:30
[2018-11-06] MEDS: Levemir Flexpen SUBQ SCH (21:04)
[2018-11-07 04:00] VITALS: BP 110/84
[2018-11-07] MEDS: NovoLOG Insulin Flexpen SUBQ SCH ×7 (05:49→21:27)
[2018-11-07 08:00] VITALS: BP 112/78
[2018-11-07 12:07] VITALS: BP 112/78
--- NOTE | 2018-11-07 12:21 | General Progress Note ---
Assessment/Plan Problem List: (1) Pancreatitis ICD Codes: K85.90 - Acute pancreatitis without necrosis or infection, unspecified SNOMED: 21639412 (2) JESUSITA (acute kidney injury) ICD Codes: N17.9 - Acute kidney failure, unspecified SNOMED: 51778791 (3) Hypocalcemia ICD Codes: E83.51 - Hypocalcemia SNOMED: 4988351 (4) Hypokalemia ICD Codes: E87.6 - Hypokalemia SNOMED: 83254398 (5) DKA (diabetic ketoacidoses) ICD Codes: E13.10 - Other specified diabetes mellitus with ketoacidosis without coma SNOMED: 88315094, 224157548 Assessment/Plan increase Levemir to 24 units qhs increase Novolog to 8 units ac tid continue NISS ac / hs Subjective Allergies: Coded Allergies: No Known Allergies (Unverified , 11/01/18) All Systems: reviewed and negative except above Subjective events noted improved Objective Last 24 Hour Vital Signs Date Time Temp Pulse Resp B/P (MAP) Pulse Ox O2 Delivery O2 Flow Rate FiO2 11/07/18 12:07 97.9 91 21 112/78 (89) 96 11/07/18 09:00 Room Air 11/07/18 08:00 97.9 91 21 112/78 (89) 96 11/07/18 04:00 97.7 89 18 110/84 (93) 99 11/06/18 23:56 98.9 94 18 131/86 (101) 98 11/06/18 21:00 Room Air 11/06/18 20:30 131/89 (103) 11/06/18 20:00 97.3 99 17 127/104 (112) 97 11/06/18 16:00 98.4 106 20 134/72 (92) 99 Intake and Output 11/06/18 11/07/18 19:00 07:00 Intake Total 800 ml 480 ml Balance 800 ml 480 ml Intake Oral 800 ml 480 ml # Voids 3 2 Height (Feet): 5 Height (Inches): 8.00 Weight (Pounds): 171 General Appearance: no apparent distress Neck: normal alignment Cardiovascular: normal rate Respiratory/Chest: lungs clear Abdomen: normal bowel sounds Edema: no edema noted Arm (L), no edema noted Arm (R), no edema noted Leg (L), no edema noted Leg (R), no edema noted Pedal (L), no edema noted Pedal (R), no edema noted Generalized Objective Current Medications Medications (Trade) Dose Ordered Sig/Cristy Route PRN Reason Start Time Stop Time Status Last Admin Dose Admin Calcium Carbonate (Tums) 500 mg Q3H PRN ORAL dyspepsia causing N/V 11/04/18 14:00 12/02/18 16:59 11/06/18 08:54 Dextrose (Dextrose 50%) 25 ml Q30M PRN IV Hypoglycemia 11/04/18 14:00 12/03/18 19:29 Dextrose (Dextrose 50%) 50 ml Q30M PRN IV Hypoglycemia 11/04/18 14:00 12/03/18 19:29 Insulin Aspart (NovoLOG) BEFORE MEALS AND HS SUBQ 11/04/18 16:30 12/03/18 20:59 11/07/18 11:41 Insulin Aspart (NovoLOG) 6 units NOVOTIAC SUBQ 11/06/18 06:30 12/04/18 06:29 11/07/18 11:40 Insulin Detemir (Levemir) 18 units BEDTIME SUBQ 11/04/18 21:00 12/03/18 20:59 11/06/18 21:04 Ondansetron HCl (Zofran) 4 mg Q6H PRN IVP Nausea & Vomiting 11/04/18 13:54 12/01/18 13:53 Item Value Date Time Bedside Blood Glucose 299 mg/dl H 11/07/18 1141 Bedside Blood Glucose 227 mg/dl H 11/07/18 0609 Bedside Blood Glucose 229 mg/dl H 11/06/18 1654 Derrick Chavis MD Nov 07, 2018 12:21
[2018-11-07 16:00] VITALS: BP 138/91
--- NOTE | 2018-11-07 20:03 | General Progress Note ---
Assessment/Plan Assessment/Plan Assessment - DM - pancreatitis - Alcohol abuse Recommendations - advance diet - follow labs - avoid EtOH - OK for d/c from GI standpoint Subjective Allergies: Coded Allergies: No Known Allergies (Unverified , 11/01/18) Subjective Feels better less abd pain tolerating PO Objective Last 24 Hour Vital Signs Date Time Temp Pulse Resp B/P (MAP) Pulse Ox O2 Delivery O2 Flow Rate FiO2 11/07/18 16:00 98.7 104 19 138/91 (107) 98 11/07/18 12:07 97.9 91 21 112/78 (89) 96 11/07/18 09:00 Room Air 11/07/18 08:00 97.9 91 21 112/78 (89) 96 11/07/18 04:00 97.7 89 18 110/84 (93) 99 11/06/18 23:56 98.9 94 18 131/86 (101) 98 11/06/18 21:00 Room Air 11/06/18 20:30 131/89 (103) Intake and Output 11/06/18 11/07/18 19:00 07:00 Intake Total 800 ml 480 ml Balance 800 ml 480 ml Intake Oral 800 ml 480 ml # Voids 3 2 Height (Feet): 5 Height (Inches): 8.00 Weight (Pounds): 171 Objective WDWN NCAT supple CTA RRR abd soft no edema Jeremy Sewell MD Nov 07, 2018 20:03
[2018-11-07] MEDS ORDERED: Levemir Flexpen SUBQ SCH (21:00)
--- NOTE | 2018-11-07 22:30 | Discharge Summary ---
DATE OF ADMISSION: 11/01/2018 HOSPITAL COURSE: This is an elderly male who was admitted for DKA, generalized weakness, abdominal pain, nausea, and vomiting. The patient was admitted in the ICU. He was placed initially on a DKA protocol insulin drip, IV antibiotics, and IV fluids, successfully he was out of . He is on Levemir and NovoLog. The patient is improving. His abdominal pain has resolved. He also had a CT of the abdomen as well as GI consult. This was unremarkable. The patient is wanting to go home and followup outpatient. DISCHARGE DIAGNOSES: 1. Diabetic ketoacidosis, resolved. 2. Abdominal pain, resolved. 3. Diabetes. 4. Generalized weakness. DIET: He is on a 2000-ADA diet. ACTIVITY: As tolerated. DISCHARGE MEDICATIONS: prescription was given. Discussed with pillowcase folder. Also, given a prescription for Accu-Chek , Levemir, and NovoLog. The patient was recommended followup with his primary care. Dallin Daly M.D. DR: ALEJANDRINA JOB#: [id number] CC:
[2018-11-08] VITALS: BP 142/94
[2018-11-08 04:00] VITALS: BP 130/70
[2018-11-08] MEDS: NovoLOG Insulin Flexpen SUBQ SCH ×2 (05:56)
--- NOTE | 2018-11-08 06:24 | General Progress Note ---
Assessment/Plan Problem List: (1) Pancreatitis ICD Codes: K85.90 - Acute pancreatitis without necrosis or infection, unspecified SNOMED: 53180792 (2) JESUSITA (acute kidney injury) ICD Codes: N17.9 - Acute kidney failure, unspecified SNOMED: 79188993 (3) Hypocalcemia ICD Codes: E83.51 - Hypocalcemia SNOMED: 3583413 (4) Hypokalemia ICD Codes: E87.6 - Hypokalemia SNOMED: 54925145 (5) DKA (diabetic ketoacidoses) ICD Codes: E13.10 - Other specified diabetes mellitus with ketoacidosis without coma SNOMED: 89720348, 616414438 Assessment/Plan continue Levemir 24 units qhs continue Novolog 8 units ac tid continue NISS ac / hs Subjective Allergies: Coded Allergies: No Known Allergies (Unverified , 11/01/18) All Systems: reviewed and negative except above Subjective events noted Objective Last 24 Hour Vital Signs Date Time Temp Pulse Resp B/P (MAP) Pulse Ox O2 Delivery O2 Flow Rate FiO2 11/08/18 04:00 98.2 90 17 130/70 (90) 98 11/08/18 00:00 98.4 95 20 142/94 (110) 97 11/07/18 20:16 Room Air 11/07/18 16:00 98.7 104 19 138/91 (107) 98 11/07/18 12:07 97.9 91 21 112/78 (89) 96 11/07/18 09:00 Room Air 11/07/18 08:00 97.9 91 21 112/78 (89) 96 Intake and Output 11/07/18 11/08/18 19:00 07:00 Intake Total 1000 ml Balance 1000 ml Other 1000 ml Height (Feet): 5 Height (Inches): 8.00 Weight (Pounds): 172 General Appearance: no apparent distress Neck: normal alignment Cardiovascular: normal rate Respiratory/Chest: lungs clear Abdomen: normal bowel sounds Objective Current Medications Medications (Trade) Dose Ordered Sig/Cristy Route PRN Reason Start Time Stop Time Status Last Admin Dose Admin Calcium Carbonate (Tums) 500 mg Q3H PRN ORAL dyspepsia causing N/V 11/04/18 14:00 12/02/18 16:59 11/06/18 08:54 Dextrose (Dextrose 50%) 25 ml Q30M PRN IV Hypoglycemia 11/04/18 14:00 12/03/18 19:29 Dextrose (Dextrose 50%) 50 ml Q30M PRN IV Hypoglycemia 11/04/18 14:00 12/03/18 19:29 Insulin Aspart (NovoLOG) BEFORE MEALS AND HS SUBQ 11/04/18 16:30 12/03/18 20:59 11/08/18 05:56 Insulin Aspart (NovoLOG) 8 units NOVOTIAC SUBQ 11/07/18 16:50 12/04/18 06:29 11/08/18 05:56 Insulin Detemir (Levemir) 24 units BEDTIME SUBQ 11/07/18 21:00 12/03/18 20:59 11/07/18 21:27 Ondansetron HCl (Zofran) 4 mg Q6H PRN IVP Nausea & Vomiting 11/04/18 13:54 12/01/18 13:53 Item Value Date Time Bedside Blood Glucose 171 mg/dl H 11/08/18 0559 Bedside Blood Glucose 113 mg/dl 11/07/18 2127 Bedside Blood Glucose 229 mg/dl H 11/07/18 1706 Bedside Blood Glucose 299 mg/dl H 11/07/18 1141 Bedside Blood Glucose 227 mg/dl H 11/07/18 0609 Derrick Chavis MD Nov 08, 2018 06:24
[2018-11-08 08:00] VITALS: BP 137/95
[2018-11-08] MEDS ORDERED: ONDANSETRON ODT4 MG BC (10:06)
[2018-11-08] MEDS ORDERED: LANTUS SOL100 UNIT/1 SUBQ (10:07)
--- NOTE | 2018-11-09 02:45 | Discharge Summary ---
DATE OF ADMISSION: 11/01/2018 DATE OF DISCHARGE: 11/08/2018 HOSPITAL COURSE: This is a young 48-year-old male who came in with DKA, it was resolved, has a diabetes uncontrolled. The patient is going to go home with family. DISCHARGE DIAGNOSES: 1. Diabetic ketoacidosis, resolved. 2. Hypertension. 3. Diabetic gastropathy. PLAN: 1. Continue home medications. 2. Followup as an outpatient. 3. Also given Levemir and sliding scale. 4. Dietary consult was also obtained. Dallin Daly M.D. DR: Daniella JOB#: [id number] CC:
== END 2018-11-08 12:17 | disposition home or self-care (01) | DRG 420 ==
LOC: EDBD 15:20 → EMR 16:31 → ICU 19:23 → EDBEDREQ 19:55 → ICU 22:30 → 4E 11-04 13:47
DX: E11.10 Type 2 diabetes mellitus with ketoacidosis without coma (principal); K85.90 Acute pancreatitis without necrosis or infection, unspecified; N17.9 Acute kidney failure, unspecified; E87.6 Hypokalemia; Z79.4 Long term (current) use of insulin; E83.51 Hypocalcemia; I10 Essential (primary) hypertension; F32.9 Major depressive disorder, single episode, unspecified; R53.1 Weakness; E11.69 Type 2 diabetes mellitus with other specified complication; K31.9 Disease of stomach and duodenum, unspecified; F41.9 Anxiety disorder, unspecified; F10.10 Alcohol abuse, uncomplicated
CPT/HCPCS: 36415; 70450; 71045; 74177; 80048; 80053; 80307; 81003; 82009; 82550; 82553; 82962; 83036; 83605; 83615; 83690; 83735; 83880; 84100; 84484; 85025; 87081; 90471; 90715; 93005; 96361; 96374; 99291; J1815; J2405; J8499; S5561